=== PATIENT | female | born 1965 | race Caucasian/White ===

== ENCOUNTER 2025-01-04 10:35 | Emergency (ER) | payer BC, MEDICAID ==
[~2025-01-04] VITALS: Ht 160 cm; Wt 68.2 kg
[2025-01-04 11:10] VITALS: PULSE 92; RESP 12; O2SAT 96
--- NOTE | 2025-01-04 11:42 | ED.PDOC ---
HPI (NEURO) HPI Comments This is a 59 year old female BIBA presenting to the ED with chief complaint of seizure-like activity. Patient's son reports hearing a loud bang at home and when investigating, found the patient on the floor shaking, having what appeared to be a seizure. Son relays that when the patient woke up, she was confused and not answer questions appropriately. Patient states she is now feeling a bit better, but does not remember the events that occurred and is currently nauseous. Patient notes she had previous aortic aneurysm surgery and she has recently not been eating well. Patient denies any SOB, chest pain, headache, vomiting, abdominal pain, or dizziness. 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 Hx Family History Family History: Reviewed,noncontributory to illness Social History Smoker: Non-Smoker Alcohol: Denies ETOH Use Drugs: Denies Drug Use Lives In: Home Constitutional: denies: chills, diaphoresis, fatigue, fever, malaise, sweats, weakness, others EENTM: denies: blurred vision, double vision, ear bleeding, ear discharge, ear drainage, ear pain, ear ringing, eye pain, eye redness, hearing loss, mouth pain, mouth swelling, nasal discharge, nose bleeding, nose congestion, nose pain, photophobia, tearing, throat pain, throat swelling, voice changes, others Respiratory: denies: cough, hemoptysis, orthopnea, SOB at rest, shortness of breath, SOB with excertion, stridor, wheezing, others Cardiovascular: reports: syncope; denies: chest pain, dizzy spells, diaphoresis, Dyspnea on exertion, edema, irregular heart beat, left arm pain, lightheadedness, palpitations, PND, others Gastrointestinal: reports: nausea; denies: abdomen distended, abdominal pain, blood streaked bowels, constipated, diarrhea, dysphagia, difficulty swallowing, hematemesis, melena, poor appetite, poor fluid intake, rectal bleeding, rectal pain, vomiting, others Genitourinary: denies: abnormal vagina bleeding, burning, dyspareunia, dysuria, flank pain, frequency, hematuria, incontinence, pain, , vagina discharge, urgency, others Neurological: reports: seizure; denies: dizziness, fainting, headache, left sided numbness, left sided weakness, numbness, paresthesia, pre-existing deficit, right sided numbness, right sided weakness, speech problems, tingling, tremors, weakness, others Musculoskeletal: denies: back pain, gout, joint pain, joint swelling, muscle pain, muscle stiffness, neck pain, others Integumetry: denies: bruises, change in color, change in hair/nails, dryness, laceration, lesions, lumps, rash, wounds, others Allergic/Immunocompromised: denies: Difficulty Healing, Frequent Infections, Hives, Itching, others Hematologic/Lymphatic: denies: anemia, blood clots, easy bleeding, easy bruising, swollen glands, others Endocrine: denies: excessive hunger, excessive sweating, excessive thirst, excessive urination, flushing, intolerance to cold, intolerance to heat, unexplained weight gain, unexplained weight loss, others Psychiatric: denies: anxiety, bipolar disorder, depression, hopeless, panic disorder, schizophrenia, sleepless, suicidal, others All Other Systems: Reviewed and Negative Physical Exam General Appearance: No Apparent Distress, Normal HEENT: Normal ENT Inspection, Pharynx Normal, TMs Normal Neck: Full Range of Motion, Non-Tender, Normal, Normal Inspection Respiratory: Chest Non-Tender, Lungs Clear, No Accessory Muscle Use, No Respiratory Distress, Normal Breath Sounds Cardiovascular: No Edema, No JVD, No Murmur, No Gallop, Normal Peripheral Pulses, Regular Rate/Rhythm Breast Exam: Deferred Gastrointestinal: No Organomegaly, Non Tender, No Pulsatile Mass, Normal Bowel Sounds, Soft Genitalia: Deferred Pelvic: Deferred Rectal: Deferred Extremities: No calf tenderness, Normal capillary refill, Normal inspection, Normal range of motion, Non-tender, No pedal edema Musculoskeletal : Apperance: Normal Neurologic: Alert, warp knitter helper II-XII nml as Tested, No Motor Deficits, Normal Affect, Normal Mood, No Sensory Deficits Cerebellar Function: Normal Reflexes: Normal Skin: Dry, Normal Color, Warm Lymphatic: No Adenopathy Was a procedure done? Was a procedure done?: No X-Ray, Labs, Meds, VS Vital Signs Date Time Temp Pulse Resp B/P (MAP) Pulse Ox O2 Delivery O2 Flow Rate FiO2 01/04/25 21:00 99.3 104 13 101/72 (82) 96 99.3 01/04/25 20:00 102 01/04/25 19:30 Room Air* 0 21 01/04/25 19:30 97.9 104 15 110/65 (80) 96 97.9 01/04/25 18:59 98.5 01/04/25 18:00 98.8 105 15 101/71 (81) 98 98.8 01/04/25 17:59 98.8 01/04/25 17:00 97 01/04/25 15:00 97 15 106/76 (86) 95 01/04/25 13:06 100 14 101/60 (74) 99 01/04/25 12:00 94 01/04/25 11:10 97.7 92 12 125/79 (94) 96 97.7 01/04/25 11:10 92 12 96 Room Air* 0 21 01/04/25 11:10 107 01/04/25 10:45 98.0 88 22 114/80 97 98.0 01/04/25 10:39 85 Lab Test 01/04/25 16:30 01/04/25 15:57 01/04/25 13:25 01/04/25 11:44 Range/Units Urine Color Light-yellow Yellow Urine Clarity Clear Clear Urine pH 6.5 5.0-9.0 Urine Specific [place] 1.013 1.001-1.035 Urine Protein Negative Negative Urine Ketones 1+ H Negative Urine Blood Negative Negative /uL Urine Nitrite Negative Negative Urine Bilirubin Negative Negative Urine Urobilinogen Normal Negative mg/dL Urine Leukocyte Esterase Negative Negative /uL Urine RBC 1 0 - 4 /hpf Urine Microscopic WBC 3 0-5 /HPF Urine Squamous Epithelial Cells Few <5 /hpf Urine Bacteria None seen None Seen /hpf Urine Hyaline Casts Few 0 - 2 /lpf Urine Glucose 4+ H Normal mg/dL Troponin I High Sensitivity 275 *H 90 *H 27 </=34 ng/L White Blood Count 4.7 4.4-10.8 10^3/uL Red Blood Count 4.06 4.0-5.20 10^6/uL Hemoglobin 14.2 12.2-16.2 g/dL Hematocrit 41.4 36.0-46.0 % Mean Corpuscular Volume 102.0 H 80.0-100.0 fL Mean Corpuscular Hemoglobin 35.1 H 28.0-32.0 pg Mean Corpuscular Hemoglobin Concent 34.4 32.0-36.0 g/dL Red Cell Distribution Width 13.4 11.8-14.3 % Platelet Count 128 L 140-450 10^3/uL Mean Platelet Volume 8.8 6.9-10.8 fL Neutrophils (%) (Auto) 81.0 H 37.0-80.0 % Lymphocytes (%) (Auto) 15.4 10.0-50.0 % Monocytes (%) (Auto) 2.8 0.0-12.0 % Eosinophils (%) (Auto) 0.3 0.0-7.0 % Basophils (%) (Auto) 0.5 0.0-2.0 % Neutrophils # (Auto) 3.8 1.6-8.6 10 ^3/uL Lymphocytes # (Auto) 0.7 0.4-5.4 10 ^3/uL Monocytes # (Auto) 0.1 0-1.3 10 ^3/uL Eosinophils # (Auto) 0 0-0.8 10 ^3/uL Basophils # (Auto) 0 0-0.2 10 ^3/uL Nucleated Red Blood Cells 0.1 % Prothrombin Time 11.6 9.3-11.8 sec Prothrombin Time INR 1.11 0.9-1.15 Sodium Level 139 136-145 mmol/L Potassium Level 3.9 3.5-5.1 mmol/L Chloride Level 99 98-107 mmol/L Carbon Dioxide Level 25 20-31 mmol/L Anion Gap 15 5-15 Blood Urea Nitrogen 6 L 9-23 mg/dL Creatinine 0.79 0.550-1.02 mg/dL Glomerular Filtration Rate Calc 85 >90 mL/min BUN/Creatinine Ratio 7.6 L 10.0-20.0 Serum Glucose 158 H 74-106 mg/dL Calcium Level 9.3 8.7-10.4 mg/dL Time of 1ST Reevaluation: 12:27 Reevaluation 1ST: Unchanged Patient Education/Counseling: Diagnosis, Treatment Family Education/Counseling: Diagnosis, Treatment Departure 1 Departure Time of Disposition: 05:16 (Patient with likely acute on chronic subdural hematoma the cause new onset seizure. Patient accepted as a transfer for neurosurgery.) Impression: Primary Impression: Subdural hematoma Additional Impressions: New onset seizure Syncope and collapse Disposition: 02 SHORT TERM [facility]OSPITAL Condition: Critical Critical Care Note Critical Care Time?: Yes Critical care comment: Brain bleed and new onset seizure Authorized and Performed by: Roberth Wilde MD Total critical care time: Approximately 44 minutes Due to a high probability of clinically significant, life threatening deterioration, the patient required my highest level of preparedness to intervene emergently and I personally spent this critical care time directly and personally managing the patient. This critical care time included obtaining a history; examining the patient; pulse oximetry; ordering and review of studies; arranging urgent treatment with development of a management plan; evaluation of patient's response to treatment; frequent reassessment; and, discussions with other providers. This critical care time was performed to assess and manage the high probability of imminent, life-threatening deterioration that could result in multi-organ failure. It was exclusive of separately billable procedures and treating other patients and teaching time. Please see my other sections and the rest of the note for further information on patient assessment and treatment. Stability Stability form required: No Heart Score Heart Score: Heart Score Response (Comments) Value History Highly Suspicious 2 EKG Normal 0 Age <45 0 Risk Factors No known risk factors 0 Troponin 1-2 x's Normal limit 1 Total 3 I personally scribed for ROBERTH WILDE MD ([email or web address]) on 01/04/25 at 11:41. Electronically submitted by James Lyon ([email or web address]). ROBERTH WILDE MD Jan 04, 2025 11:41
--- NOTE | 2025-01-04 11:47 | DVH ---
EXAM: XY CHEST PORTABLE HISTORY: syncope COMPARISON: None TECHNIQUE: Portable upright AP view of the chest was performed. FINDINGS: No pneumothorax, consolidative infiltrates, or pulmonary edema. The heart is not enlarged. There are postoperative changes of median sternotomy. There is an oblique right distal clavicle fracture with m ild displacement. 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 IMPRESSION: 1. Mildly displaced right distal clavicle resection. 2. The lungs are clear. 3. Postoperative changes of the heart.
--- NOTE | 2025-01-04 11:53 | DVH ---
EXAM: CT HEAD WITHOUT CONTRAST INDICATION: syncope TECHNIQUE: CT of the head without intravenous contrast. Radiation Dose Information: CT Dose: CTDI volume is 52.86 mGy. Dose-length product is 845.74 mGy*cm The dose indicators for CT are the volume Computed Tomography (CT) Dose Index (CTDIvol) and the Dose Length Product (DLP), and are measured in units of mGy and mGy-cm, respectively. These indicators are not patient dose, but values generated from the CT scanner acquisition factors. The report includes radiation exposure data for exposures received during this examination. COMPARISON: None FINDINGS: There is no evidence of acute intracranial hemorrhage, extra-axial collection, mass effect, midline s hift, herniation or hydrocephalus. The ventricles, sulci and cisterns are age appropriate. Chronic bilateral subdural hematomas or hygromas measuring 7 mm on the right and 5 mm on the left. No recent hemorrhage. Some hyperdense dural thickening suspected overlying the right frontal lobe. The rosas-white differentiation is intact. Patchy periventricular and subcortical white matter hypoattenuation is nonspecific but may be related to small vessel ischemic disease. The visualized paranasal sinuses and mastoid air cells are clear. The surrounding soft tissues and osseous structures are unremarkable. IMPRESSION: No acute intracranial abnormality. Thin chronic bilateral subdural hematomas or hygromas.
[2025-01-04] MEDS: levETIRAcetam 1000 mg/100ml 100 ML IV ONE (12:00)
[2025-01-04 12:11] LABS: Hematocrit 41.4 % (36.0-46.0)
[2025-01-04 12:15] LABS: Hemoglobin 14.2 g/dL (12.2-16.2); Mean Corpuscular Hemoglobin 35.1 pg (28.0-32.0); Mean Corpuscular Volume 102.0 fL (80.0-100.0); Nucleated Red Blood Cells % 0.1 %
[2025-01-04 12:18] LABS: Chloride 99 mmol/L (98-107); Potassium 3.9 mmol/L (3.5-5.1); Sodium 139 mmol/L (136-145)
[2025-01-04 12:19] LABS: Anion Gap 15 (5-15); Carbon Dioxide 25 mmol/L (20-31)
[2025-01-04 12:20] LABS: Calcium 9.3 mg/dL (8.7-10.4)
[2025-01-04 12:24] LABS: BUN/Creatinine Ratio 7.6 (10.0-20.0)
[2025-01-04 12:25] LABS: Blood Urea Nitrogen 6 mg/dL (9-23); Glucose 158 mg/dL (74-106)
[2025-01-04] MEDS ORDERED: NITROGLYCERIN 0.4 MG SL TAB SL PRN (15:00)
[2025-01-04] MEDS ORDERED: MORPHINE SULFATE INJ 2 MG/ml SYRG IV PRN (15:00)
[2025-01-04 15:32] LABS: INR 1.11 (0.9-1.15); Prothrombin Time 11.6 sec (9.3-11.8)
[2025-01-04] MEDS: SODIUM CHLORIDE 0.9% 1,000 ML IV ONE (16:34)
--- NOTE | 2025-01-04 17:26 | DVHEEG2 ---
Neurology EEG Procedural Note Procedural Note Suboptimal study, but no obvious electrographic seizures seen. RAMESH RUSSELL MD Jan 04, 2025 17:26
[2025-01-04 17:32] LABS: Urine Protein, UAD Negative (Negative)
[2025-01-04] MEDS: ACETAMINOPHEN 325 MG TAB PO ONE (17:59)
[2025-01-04] MEDS: ONDANSETRON HCL 4 MG/2 ML VIAL IV ONE (17:59)
[2025-01-04] MEDS: MORPHINE SULFATE 4 MG/ML SYR/VIAL IV ONE (18:09)
--- NOTE | 2025-01-04 19:12 | ECG ---
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
[2025-01-04 21:00] VITALS: BP 101/72; PULSE 104; RESP 13; TEMP 99.3; O2SAT 96
[2025-01-04] MEDS: HYDROcodone-ACET 5/325MG TAB PO ONE (21:24)
[2025-01-04] MEDS ORDERED: levETIRAcetam 1000 mg/100ml 100 ML IV SCH (22:00)
== END 2025-01-04 21:31 | disposition short-term general hospital (02) ==
LOC: ER 10:35 → EDBD 10:35 → ER 21:31
DX: S06.5XAA Traumatic subdural hemorrhage with loss of consciousness status unknown, initial encounter (principal); R56.9 Unspecified convulsions; Z86.79 Personal history of other diseases of the circulatory system; X58.XXXA Exposure to other specified factors, initial encounter; Y93.89 Activity, other specified; Y92.89 Other specified places as the place of occurrence of the external cause; Y99.8 Other external cause status
CPT/HCPCS: 36415; 70450; 71045; 80048; 81001; 82947; 84484; 85025; 85610; 93005; 95819; 96361; 96374; 96375; 99291; J1953; J2405; J7030